=== PATIENT | male | born 1980 | race Caucasian/White ===

== ENCOUNTER → 2021-07-07 | Emergency (ER) | payer SELFPAY ==
[~2021-07-07] VITALS: Ht 182.9 cm; Wt 86.2 kg
[2021-07-07 10:28] VITALS: BP 184/96
--- NOTE | 2021-07-07 11:00 | NUR ---
DR BOUDREAUX AT THE BEDSIDE
--- NOTE | 2021-07-07 11:06 | NUR ---
UNABLE TO DEPART, DEPART BUTTON IS INACTIVE.
--- NOTE | 2021-07-07 11:07 | NUR ---
Patient discharged to home in stable condition. Written and verbal after care instructions given. Patient verbalizes understanding of instruction.
== END | disposition home or self-care (01) ==
LOC: ER 11:29
DX: T75.4XXA Electrocution, initial encounter (principal); W85.XXXA Exposure to electric transmission lines, initial encounter; Y93.89 Activity, other specified; Y92.89 Other specified places as the place of occurrence of the external cause; Y99.8 Other external cause status